=== PATIENT | female | born 1965 | race Caucasian/White ===

== ENCOUNTER 2023-10-31 09:15 | Inpatient (IN) | payer OTHER ==
[2023-10-31 09:55] VITALS: BMI 27.8
[2023-10-31 10:05] LABS: HEMATOCRIT 26.8 % (32.4-45.2); HEMOGLOBIN 8.2 GM/dL (10.7-15.3); MCH 25.3 pg (25.7-33.7); MCHC 30.4 g/dl (32.0-36.0); MEAN CELL VOLUME 83.3 fl (80-96); PLATELET COUNT 213 10^3/uL (134-434); RBC 3.22 M/mm3 (3.60-5.2); RDW 19.8 % (11.6-15.6); WHITE BLOOD COUNT 21.9 K/mm3 (4.0-10.0)
[2023-10-31 10:12] LABS: INR 1.34 (0.83-1.09); PROTHROMBIN TIME (PATIENT) 15.5 SEC (9.7-13.0)
[2023-10-31 10:15] LABS: ACTIVATED PTT 28.5 SECONDS (25.2-36.5); VENOUS BASE EXCESS -4.8 mmol/L (-2-2); VENOUS O2 SATURATION 39.9 % (70-80); VENOUS PCO2 55.3 mmHg (38-52); VENOUS PH 7.235 (7.310-7.410)
[2023-10-31] MEDS ORDERED: AZITHROMYCIN IVPB 500 MG/250 ML BAG IVPB ONE (10:35)
[2023-10-31] MEDS ORDERED: CEFTRIAXONE 1 GM/50 ML BAG ONE (10:35)
[2023-10-31 10:36] LABS: POTASSIUM 4.5 mmol/L (3.5-5.1)
[2023-10-31 10:38] LABS: CALCIUM 8.6 mg/dL (8.5-10.1)
[2023-10-31 10:39] LABS: ALBUMIN 2.7 g/dl (3.4-5.0); BLOOD UREA NITROGEN 40.8 mg/dL (7-18); MAGNESIUM 1.8 mg/dL (1.8-2.4)
[2023-10-31] MEDS: CEFTRIAXONE 1,000 MG in DEXTROSE 5%-WATER - 50 ML IVPB ONE (10:41)
[2023-10-31 10:42] LABS: CREATININE 3.5 mg/dL (0.55-1.3)
[2023-10-31 10:43] LABS: BILIRUBIN,TOTAL 2.4 mg/dL (0.2-1)
[2023-10-31 10:43] LABS: EPI CELLS >36 /uL (0-25.1); HYALINE CASTS 2 /uL (0-3.1); PH,URINE 5.5 (5.0-8.0); URINE APPEARANCE TURBID; URINE BILIRUBIN 1+ (NEGATIVE); URINE COLOR DK YELLOW; URINE GLUCOSE (UA) NEGATIVE (NEGATIVE); URINE KETONE TRACE (NEGATIVE); URINE LEUK ESTERASE 2+ (NEGATIVE); URINE NITRITE NEGATIVE (NEGATIVE); URINE PROTEIN 3+ (NEGATIVE); URINE RBC 120 /uL (0-23.9); URINE WBC 2769 /uL (0-25.8)
[2023-10-31 10:44] LABS: TOT PROT 6.6 g/dl (6.4-8.2)
[2023-10-31 10:45] LABS: N-TERMINAL BNP 9629.3 pg/ml (5-125)
[2023-10-31 10:56] LABS: ANISOCYTOSIS 0; HELMET CELLS 0; HOWELL-JOLLY BODIES 0; MACROCYTOSIS 0; OVALOCYTE 0; ROULEAU 0; SICKELED CELLS 0; TARGET CELLS 0; TEAR DROP CELLS 0; TOXIC GRANULATION 0
[2023-10-31] MEDS: AZITHROMYCIN IVPB 500 MG in DEXTROSE 5%-WATER - 250 ML IVPB ONE (11:02)
[2023-10-31 11:20] LABS: URINE BACTERIA 11889.5 /uL (0-1359)
[2023-10-31 11:22] LABS: YEAST NONE SEEN (NEGATIVE)
[2023-10-31] MEDS: SODIUM CHLORIDE 2,068 ML IV ONE (12:22)
[2023-10-31] MEDS ORDERED: ACETAMINOPHEN INJECTION 100 ML IVPB ONE (12:57)
[2023-10-31] MEDS: ACETAMINOPHEN 1000 MG/100 ML BAG IVPB ONE (13:06)
[2023-10-31] MEDS ORDERED: ONDANSETRON 4 MG/2 ML VIAL ONE (13:18)
[2023-10-31] MEDS: ONDANSETRON 4 MG/2 ML VIAL IVPUSH ONE (13:25)
[2023-10-31 15:43] LABS: HEMATOCRIT 24.8 % (32.4-45.2); HEMOGLOBIN 7.6 GM/dL (10.7-15.3); MCH 25.4 pg (25.7-33.7); MCHC 30.8 g/dl (32.0-36.0); MEAN CELL VOLUME 82.7 fl (80-96); PLATELET COUNT 188 10^3/uL (134-434); RDW 20.1 % (11.6-15.6); WHITE BLOOD COUNT 18.7 K/mm3 (4.0-10.0)
[2023-10-31] MEDS ORDERED: LACTATED RINGERS SOLUTION 1000 ML INFUS.BAG IV ONE (15:45)
[2023-10-31] MEDS ORDERED: ACETAMINOPHEN 1000 MG/100 ML BAG IVPB PRN (15:46)
[2023-10-31 16:07] LABS: POTASSIUM 4.2 mmol/L (3.5-5.1)
[2023-10-31 16:08] LABS: CALCIUM 7.6 mg/dL (8.5-10.1)
[2023-10-31 16:09] LABS: BLOOD UREA NITROGEN 40.6 mg/dL (7-18)
[2023-10-31 16:12] LABS: CREATININE 2.9 mg/dL (0.55-1.3)
[2023-11-01 07:19] LABS: HEMATOCRIT 23.1 % (32.4-45.2); MCH 25.1 pg (25.7-33.7); MCHC 30.4 g/dl (32.0-36.0); MEAN CELL VOLUME 82.5 fl (80-96); MEAN PLT VOLUME 9.2 fl (7.5-11.1); PLATELET COUNT 170 10^3/uL (134-434); RDW 20.2 % (11.6-15.6); WHITE BLOOD COUNT 17.5 K/mm3 (4.0-10.0)
[2023-11-01 07:28] LABS: POTASSIUM 3.6 mmol/L (3.5-5.1)
[2023-11-01 07:32] LABS: BLOOD UREA NITROGEN 51.7 mg/dL (7-18); CALCIUM 7.1 mg/dL (8.5-10.1); MAGNESIUM 1.7 mg/dL (1.8-2.4)
[2023-11-01 07:35] LABS: CREATININE 3.1 mg/dL (0.55-1.3); PHOSPHOROUS 3.8 mg/dL (2.5-4.9)
[2023-11-01 07:37] LABS: TOT PROT 5.3 g/dl (6.4-8.2)
[2023-11-01 07:39] LABS: BILIRUBIN,TOTAL 1.7 mg/dL (0.2-1)
[2023-11-01 07:48] LABS: ALBUMIN 1.9 g/dl (3.4-5.0)
[2023-11-01 08:48] LABS: MACROCYTOSIS 0
[2023-11-01 08:59] LABS: ANISOCYTOSIS 1+
[2023-11-01] MEDS ORDERED: AZITHROMYCIN IVPB 500 MG/250 ML BAG IVPB SCH (10:00)
[2023-11-01] MEDS ORDERED: CEFTRIAXONE 2 GM in DEXTROSE 5%-WATER 100 ML IVPB SCH (10:00)
[2023-11-01] MEDS ORDERED: AZITHROMYCIN 250 MG TABLET PO SCH (10:00)
[2023-11-01] MEDS ORDERED: CEFTRIAXONE 1 GM in DEXTROSE 5%-WATER - 50 ML IVPB SCH (10:00)
[2023-11-01 10:11] LABS: HIV INTERPRETATION NEGATIVE (NEGATIVE)
[2023-11-01] MEDS: THIAMINE HCL 200 MG/2 ML VIAL IVPB SCH ×2 (16:50→19:19)
[2023-11-01] MEDS: FOLIC ACID 1 MG TABLET (FP) PO SCH ×2 (16:50→19:19)
[2023-11-01] MEDS: MAGNESIUM SULF 50% (8.12 MEQ/2 ML-1 GM VIAL) IVPB ONE ×2 (16:51→19:19)
[2023-11-01] MEDS: LACTATED RINGERS SOLUTION 1,000 ML/1,000 ML INFUS.BAG IV SCH (19:19)
[2023-11-01] MEDS: AZTREONAM 2 GM in DEXTROSE 5%-WATER 100 ML IVPB SCH (19:20)
[2023-11-01] MEDS: CEFEPIME 1 GM in DEXTROSE 5%-WATER 100 ML IVPB SCH (21:29)
[2023-11-01 21:56] LABS: EPI CELLS 31 /uL (0-25.1); HYALINE CASTS 1 /uL (0-3.1); URINE APPEARANCE CLEAR; URINE BACTERIA 7 /uL (0-1359); URINE BILIRUBIN NEGATIVE (NEGATIVE); URINE COLOR YELLOW; URINE GLUCOSE (UA) NEGATIVE (NEGATIVE); URINE KETONE NEGATIVE (NEGATIVE); URINE LEUK ESTERASE TRACE (NEGATIVE); URINE NITRITE NEGATIVE (NEGATIVE); URINE PROTEIN 1+ (NEGATIVE); URINE UROBILINOGEN 0.2 mg/dL (0.2-1.0); URINE WBC 32 /uL (0-25.8)
[2023-11-01 22:11] LABS: URINE RBC 34.9 /uL (0-23.9); YEAST FEW (NEGATIVE)
[2023-11-02] MEDS: SODIUM CHLORIDE 1,000 ML IV SCH (07:14)
[2023-11-02] MEDS: AZTREONAM 2 GM in DEXTROSE 5%-WATER 100 ML IVPB SCH (07:15)
[2023-11-02] MEDS: SODIUM CHLORIDE 0.9% 500 ML INFUS.BAG IV ONE (07:16)
[2023-11-02 07:32] LABS: HEMATOCRIT 27.5 % (32.4-45.2); HEMOGLOBIN 8.5 GM/dL (10.7-15.3); MCH 25.6 pg (25.7-33.7); MEAN CELL VOLUME 82.5 fl (80-96); MEAN PLT VOLUME 9.1 fl (7.5-11.1); PLATELET COUNT 165 10^3/uL (134-434); RBC 3.34 M/mm3 (3.60-5.2); RDW 19.5 % (11.6-15.6); WHITE BLOOD COUNT 15.8 K/mm3 (4.0-10.0)
[2023-11-02 07:39] LABS: POTASSIUM 3.9 mmol/L (3.5-5.1)
[2023-11-02 07:43] LABS: ALBUMIN 1.9 g/dl (3.4-5.0); BLOOD UREA NITROGEN 55.4 mg/dL (7-18); MAGNESIUM 3.1 mg/dL (1.8-2.4)
[2023-11-02 07:46] LABS: CREATININE 2.6 mg/dL (0.55-1.3); PHOSPHOROUS 3.5 mg/dL (2.5-4.9)
[2023-11-02 07:47] LABS: BILIRUBIN,TOTAL 1.8 mg/dL (0.2-1); TOT PROT 5.4 g/dl (6.4-8.2)
[2023-11-02 09:51] LABS: ANISOCYTOSIS 0; MACROCYTOSIS 0
[2023-11-02] MEDS: CEFTRIAXONE 2 GM in DEXTROSE 5%-WATER 100 ML IVPB SCH (14:39)
[2023-11-02] MEDS: METOPROLOL TARTRATE 25 MG TABLET (FP) PO SCH (21:11)
[2023-11-03 07:17] LABS: HEMATOCRIT 24.9 % (32.4-45.2); HEMOGLOBIN 7.9 GM/dL (10.7-15.3); MCHC 31.6 g/dl (32.0-36.0); MEAN CELL VOLUME 82.4 fl (80-96); MEAN PLT VOLUME 9.6 fl (7.5-11.1); PLATELET COUNT 173 10^3/uL (134-434); RBC 3.03 M/mm3 (3.60-5.2); RDW 19.6 % (11.6-15.6); WHITE BLOOD COUNT 14.6 K/mm3 (4.0-10.0)
[2023-11-03 07:33] LABS: POTASSIUM 4.3 mmol/L (3.5-5.1)
[2023-11-03 07:35] LABS: CALCIUM 7.7 mg/dL (8.5-10.1)
[2023-11-03 07:36] LABS: ALBUMIN 1.8 g/dl (3.4-5.0); BLOOD UREA NITROGEN 43.2 mg/dL (7-18); MAGNESIUM 2.6 mg/dL (1.8-2.4)
[2023-11-03 07:39] LABS: PHOSPHOROUS 3.7 mg/dL (2.5-4.9)
[2023-11-03 07:40] LABS: BILIRUBIN,TOTAL 1.3 mg/dL (0.2-1); TOT PROT 5.4 g/dl (6.4-8.2)
[2023-11-03 10:46] LABS: ANISOCYTOSIS 0; MACROCYTOSIS 0
[2023-11-03] MEDS: VANCOMYCIN/WATER FOR INJ (PEG) 1,000 MG/200 ML BAG IVPB ONE (12:57)
[2023-11-03] MEDS: BISACODYL 5 MG TABLET.DR (FP) PO ONE (16:26)
[2023-11-03] MEDS: PEG 3350/NA SULF BICARB CL/KCL 4000 ML SOLN.RECON PO ONE (16:26)
[2023-11-04 07:34] LABS: HEMATOCRIT 24.9 % (32.4-45.2); HEMOGLOBIN 8.1 GM/dL (10.7-15.3); MCH 26.3 pg (25.7-33.7); MCHC 32.4 g/dl (32.0-36.0); MEAN CELL VOLUME 81.2 fl (80-96); PLATELET COUNT 204 10^3/uL (134-434); RBC 3.07 M/mm3 (3.60-5.2); WHITE BLOOD COUNT 14.4 K/mm3 (4.0-10.0)
[2023-11-04 07:35] LABS: POTASSIUM 3.8 mmol/L (3.5-5.1)
[2023-11-04 07:44] LABS: ALBUMIN 1.8 g/dl (3.4-5.0); BLOOD UREA NITROGEN 30.7 mg/dL (7-18); CALCIUM 7.4 mg/dL (8.5-10.1)
[2023-11-04 07:48] LABS: BILIRUBIN,TOTAL 0.8 mg/dL (0.2-1); CREATININE 1.6 mg/dL (0.55-1.3); TOT PROT 5.5 g/dl (6.4-8.2)
[2023-11-04 09:14] LABS: ANISOCYTOSIS 1+; MACROCYTOSIS 0; TARGET CELLS 2+
[2023-11-04 19:07] LABS: ANTIGLOMERULAR BASEMENT MEN.AB <0.2 units (0.0-0.9)
[2023-11-05 07:41] LABS: HEMATOCRIT 24.6 % (32.4-45.2); HEMOGLOBIN 7.8 GM/dL (10.7-15.3); MCH 25.8 pg (25.7-33.7); MCHC 31.7 g/dl (32.0-36.0); MEAN CELL VOLUME 81.5 fl (80-96); MEAN PLT VOLUME 9.3 fl (7.5-11.1); PLATELET COUNT 270 10^3/uL (134-434); RBC 3.02 M/mm3 (3.60-5.2); RDW 20.8 % (11.6-15.6); WHITE BLOOD COUNT 13.6 K/mm3 (4.0-10.0)
[2023-11-05 08:00] LABS: POTASSIUM 4.3 mmol/L (3.5-5.1)
[2023-11-05 08:02] LABS: CALCIUM 7.5 mg/dL (8.5-10.1)
[2023-11-05 08:03] LABS: ALBUMIN 1.8 g/dl (3.4-5.0); BLOOD UREA NITROGEN 21.8 mg/dL (7-18); MAGNESIUM 2.1 mg/dL (1.8-2.4)
[2023-11-05 08:06] LABS: CREATININE 1.3 mg/dL (0.55-1.3); PHOSPHOROUS 3.1 mg/dL (2.5-4.9)
[2023-11-05 08:07] LABS: TOT PROT 5.6 g/dl (6.4-8.2)
[2023-11-05 08:08] LABS: BILIRUBIN,TOTAL 0.6 mg/dL (0.2-1)
[2023-11-05 08:35] VITALS: RESP 18
[2023-11-05 09:44] LABS: ANISOCYTOSIS 2+; MACROCYTOSIS 0; TARGET CELLS 1+
[2023-11-05] MEDS: PANTOPRAZOLE 40 MG TABLET PO SCH (14:41)
[2023-11-05 16:08] LABS: C-ANCA <1:20 titer (Neg:<1:20)
[2023-11-06 07:43] LABS: HEMOGLOBIN 7.8 GM/dL (10.7-15.3); MCH 25.7 pg (25.7-33.7); MCHC 31.1 g/dl (32.0-36.0); MEAN CELL VOLUME 82.6 fl (80-96); MEAN PLT VOLUME 9.5 fl (7.5-11.1); PLATELET COUNT 336 10^3/uL (134-434); RBC 3.03 M/mm3 (3.60-5.2); RDW 21.3 % (11.6-15.6); WHITE BLOOD COUNT 13.4 K/mm3 (4.0-10.0)
[2023-11-06 08:49] LABS: CALCIUM 8.1 mg/dL (8.5-10.1)
[2023-11-06 08:50] LABS: BLOOD UREA NITROGEN 18.6 mg/dL (7-18)
[2023-11-06 08:53] LABS: CREATININE 1.2 mg/dL (0.55-1.3)
[2023-11-06 08:54] LABS: TOT PROT 6.2 g/dl (6.4-8.2)
[2023-11-06 08:55] LABS: BILIRUBIN,TOTAL 0.6 mg/dL (0.2-1)
[2023-11-06 10:40] LABS: ANISOCYTOSIS 2+; MACROCYTOSIS 0; TARGET CELLS 1+
[2023-11-06] MEDS: FERROUS SO4 325 MG TABLET (FP) PO SCH (13:23)
[2023-11-07 07:12] LABS: HEMOGLOBIN 8.4 GM/dL (10.7-15.3); MCH 25.7 pg (25.7-33.7); MCHC 31.1 g/dl (32.0-36.0); MEAN CELL VOLUME 82.5 fl (80-96); MEAN PLT VOLUME 9.1 fl (7.5-11.1); PLATELET COUNT 510 10^3/uL (134-434); RBC 3.27 M/mm3 (3.60-5.2); RDW 21.3 % (11.6-15.6); WHITE BLOOD COUNT 11.2 K/mm3 (4.0-10.0)
[2023-11-07 07:31] LABS: POTASSIUM 5.3 mmol/L (3.5-5.1)
[2023-11-07 07:35] LABS: ALBUMIN 2.2 g/dl (3.4-5.0); CALCIUM 8.6 mg/dL (8.5-10.1)
[2023-11-07 07:36] LABS: MAGNESIUM 2.2 mg/dL (1.8-2.4)
[2023-11-07 07:38] LABS: PHOSPHOROUS 3.5 mg/dL (2.5-4.9)
[2023-11-07 07:39] LABS: CREATININE 1.1 mg/dL (0.55-1.3)
[2023-11-07 07:40] LABS: TOT PROT 6.9 g/dl (6.4-8.2)
[2023-11-07 07:56] LABS: BILIRUBIN,TOTAL 0.9 mg/dL (0.2-1)
[2023-11-07 08:53] VITALS: BP 110/58; PULSE 86; TEMP 98.1
[2023-11-07 09:18] LABS: ANISOCYTOSIS 0; MACROCYTOSIS 0
[2023-11-07] MEDS ORDERED: SODIUM ZIRCONIUM CYCLOSILICATE (LOKELMA) 5 GM PACKET PO SCH (16:15)
== END 2023-11-07 15:00 | disposition home or self-care (01) | DRG 720 ==
LOC: JER 09:15 → JERBED 12:19 → J4W 18:09 → J4S 11-03 16:20
PROVIDERS: ADMIT Internal Medicine; ATTEND Internal Medicine
PROC: 30233N1 Transfusion of Nonautologous Red Blood Cells into Peripheral Vein, Percutaneous Approach (ICD-10-PCS; 2023-11-01)
PROC: 0DB68ZX Excision of Stomach, Via Natural or Artificial Opening Endoscopic, Diagnostic (ICD-10-PCS; 2023-11-05)
PROC: 0DJD8ZZ Inspection of Lower Intestinal Tract, Via Natural or Artificial Opening Endoscopic (ICD-10-PCS; 2023-11-05)
PROC: 0DB98ZX Excision of Duodenum, Via Natural or Artificial Opening Endoscopic, Diagnostic (ICD-10-PCS; principal; 2023-11-05 12:15)
DX: A41.89 Other specified sepsis (principal); J18.9 Pneumonia, unspecified organism; D64.9 Anemia, unspecified; N17.9 Acute kidney failure, unspecified; D72.829 Elevated white blood cell count, unspecified; E87.20 Acidosis, unspecified; N39.0 Urinary tract infection, site not specified; B96.20 Unspecified Escherichia coli [E. coli] as the cause of diseases classified elsewhere; D50.9 Iron deficiency anemia, unspecified; I50.22 Chronic systolic (congestive) heart failure; I44.7 Left bundle-branch block, unspecified; F10.10 Alcohol abuse, uncomplicated; R79.89 Other specified abnormal findings of blood chemistry; K76.0 Fatty (change of) liver, not elsewhere classified; K25.9 Gastric ulcer, unspecified as acute or chronic, without hemorrhage or perforation; Z88.0 Allergy status to penicillin; K64.8 Other hemorrhoids; K57.90 Diverticulosis of intestine, part unspecified, without perforation or abscess without bleeding
CPT/HCPCS: 0241U-QW; 36415; 36430; 71045-TC-FY; 71250-TC; 74176-TC; 76700-TC; 80048; 80053; 81003; 82570; 82607; 82728; 82746; 82803; 83036; 83516; 83520; 83540; 83550; 83605; 83735; 83880; 84100; 84155; 84156; 84165; 84300; 84443; 84484; 85025; 85027; 85610; 85730; 86038; 86160; 86225; 86256; 86480; 86704; 86803; 86850; 86900; 86901; 86922; 87040; 87070; 87086; 87186; 87205; 87340; 87389; 87517; 88305-TC; 93005; 93010; 93306-TC; 93970-TC; 94660; 99285-25; J0131; P9038; P9058